=== PATIENT | male | born 1960 | race Caucasian/White ===

== ENCOUNTER 2023-08-30 00:45 | Day surgery (SDC) | payer MEDICARE, OTHER, SELFPAY ==
[2023-08-20 14:26] VITALS: BMI 24.4
[2023-08-30 13:17] VITALS: BP 136/78; PULSE 60; RESP 18; TEMP 36.1; O2SAT 100
[2023-08-30] MEDS: LACTATED RINGERS 1,000 ML 150 ML IV CONT (13:32)
--- NOTE | 2023-08-30 13:37 | P.PNAN_ITS ---
Anes - Initial Pre Proc Eval Procedure: Operation Date: 08/30/23 14:15 Proposed Procedures p Screening Colonoscopy - Asher Hoffman MD Date/Time: 08/30/23 13:37 Surgeon: Asher Hoffman MD Pre Op Diagnosis: neoplasm screening Patient Data Age: 63 Gender: M Height: 1.8 m Weight: 78.2 kg Last Vital Signs Temp 97 F L 08/30/23 13:17 Pulse 60 08/30/23 13:17 Resp 18 08/30/23 13:17 BP 136/78 08/30/23 13:17 Pulse Ox 100 08/30/23 13:17 O2 Del Method Room Air 08/30/23 13:17 Allergies Allergy/AdvReac Type Severity Reaction Status Date / Time chlorphenoxamine Allergy Unknown Unknown Verified 08/30/23 13:15 chlorphentermine Allergy Unknown Unknown Verified 08/30/23 13:15 clarithromycin Allergy Unknown Unknown Verified 08/30/23 13:15 Penicillins Allergy Unknown Unknown Verified 08/30/23 13:15 phenylephrine Allergy Unknown Unknown Verified 08/30/23 13:15 pseudoephedrine Allergy Unknown Unknown Verified 08/30/23 13:15 pyrilamine Allergy Unknown Unknown Verified 08/30/23 13:15 Home Medications Medication Instructions Recorded Confirmed Type levothyroxine 25 mcg tablet 25 mcg PO DAILY #90 tabs 08/17/23 08/20/23 Rx Patient hx anesthesia problems: none Family hx anesthesia problems: none Results Review: All pre-operative results and documents have been reviewed as part of the pre- operative evaluation. [facility] Past Medical History Medical History Mixed hyperlipidemia Family History Family History Mother Hypertension Father Cerebrovascular accident Other Diabetes mellitus Social History Social History Smoking status: Never smoker Second hand tobacco smoke exposure: No Alcohol intake: never Substance use: never Substance use type: does not use Lack of Transportation: No Lack of Food: Never True Current Housing: I Have Housing Concerned About Future Housing: No Difficulty Paying Gas/Electric Bills: No Difficulty Paying for Meds: No Currently Unemployed: No Education: Bachelor's Degree Difficulty w/ Childcare or Family Care: No Living arrangements: alone Occupation/Education: occupation Gender identity (if verbalized by the patient): Male Aneaura - Evjames Final PreProcedure Day of Procedure 08/30/23 13:37 Patient weight: normal Heart: regular rate and rhythm Lungs: clear to auscultation Airway: Mallampati scale class II Neurological: alert and oriented Last oral intake: >/= 8 hours ASA classification: II Emergent: no Anesthetic plan: proceed Anesthesia type and monitoring: general GIVS and standard monitoring Results Review: All pre-operative results and documents have been reviewed as part of the pre- operative evaluation. Informed Consent: The patient's anesthetic plan and its attendant risks and benefits were discussed with the patient/family/POA. Questions were solicited and answers provided to the satisfaction of the patient/family/POA.
--- NOTE | 2023-08-30 13:46 | PM.HPGS ---
History of Present Illness History of Present Illness Consent: Risks, benefits, and alternatives have been discussed and questions answered. Patient agrees to proceed with procedure. Chief complaint: neoplasm screening Narrative: Hussain Huynh is a 63 year old male referred for colon cancer screening. Review of Systems Review of Systems: All systems reviewed & are unremarkable except as noted in HPI and below PMFSH Past Medical History Medical History Mixed hyperlipidemia Family History Family History Mother Hypertension Father Cerebrovascular accident Other Diabetes mellitus Social History Social History Smoking status: Never smoker Second hand tobacco smoke exposure: No Alcohol intake: never Substance use: never Substance use type: does not use Lack of Transportation: No Lack of Food: Never True Current Housing: I Have Housing Concerned About Future Housing: No Difficulty Paying Gas/Electric Bills: No Difficulty Paying for Meds: No Currently Unemployed: No Education: Bachelor's Degree Difficulty w/ Childcare or Family Care: No Living arrangements: alone Occupation/Education: occupation Gender identity (if verbalized by the patient): Male Meds Home Medications and Allergies Home Medications Medication Instructions Recorded Confirmed Type levothyroxine 25 mcg tablet 25 mcg PO DAILY #90 tabs 08/17/23 08/20/23 Rx Allergies Allergy/AdvReac Type Severity Reaction Status Date / Time chlorphenoxamine Allergy Unknown Unknown Verified 08/30/23 13:15 chlorphentermine Allergy Unknown Unknown Verified 08/30/23 13:15 clarithromycin Allergy Unknown Unknown Verified 08/30/23 13:15 Penicillins Allergy Unknown Unknown Verified 08/30/23 13:15 phenylephrine Allergy Unknown Unknown Verified 08/30/23 13:15 pseudoephedrine Allergy Unknown Unknown Verified 08/30/23 13:15 pyrilamine Allergy Unknown Unknown Verified 08/30/23 13:15 Vital Signs Vital Signs - 24 hr 08/30/23 13:17 Temperature 36.1 C L Pulse Rate 60 Respiratory Rate 18 Blood Pressure 136/78 Pulse Oximetry 100 Oxygen Delivery Room Air Exam Resp: Auscultation: clear to auscultation bilaterally Cardio: Rate: regular rate Rhythm: regular rhythm GI: GI Palp: Yes Soft to palpation and No Tenderness to palpation present (GI) Assessment and Plan Assessment and plan (1) Colon cancer screening: Code(s): Z12.11 - Encounter for screening for malignant neoplasm of colon Status: Acute Assessment and Plan: Colonoscopy with possible biopsy or polypectomy or cautery or injection of substances.
[2023-08-30 14:57] VITALS: BP 97/64; PULSE 49; RESP 16; O2SAT 98
[2023-08-30 15:07] VITALS: BP 109/76; PULSE 59; RESP 21; O2SAT 100
[2023-08-30 15:17] VITALS: BP 121/79; PULSE 42; RESP 15; O2SAT 100
== END 2023-08-30 15:25 | disposition home or self-care (01) ==
PROVIDERS: PCP Family Medicine; Visit Provider Internal Medicine Gastroenterology
PROC: 0DJD8ZZ Inspection of Lower Intestinal Tract, Via Natural or Artificial Opening Endoscopic (ICD-10-PCS; CPT 45378; principal; 2023-08-30 14:15)
DX: Z12.11 Encounter for screening for malignant neoplasm of colon (principal); K57.30 Diverticulosis of large intestine without perforation or abscess without bleeding; K64.8 Other hemorrhoids; E78.2 Mixed hyperlipidemia
CPT/HCPCS: G0121; J2001; J2704; J7120